=== PATIENT | female | born 1955 | race African-American/Black ===

== ENCOUNTER 2019-04-12 08:41 | Day surgery (SDC) | payer MEDICARE, BC ==
[~2019-04-12] VITALS: Ht 170.2 cm; Wt 106.4 kg
[2019-04-12 09:55] LABS: CALC OSMOLALITY 284 mosm/kg (275-300); CARBON DIOXIDE 22.8 mmol/L (21.0-32.0); CHLORIDE - SERUM 104 mmol/L (98-107); CREATININE - SERUM 0.8 mg/dL (0.6-1.3); GLUCOSE 270 mg/dL (74-106); POTASSIUM - SERUM 4.5 mmol/L (3.5-5.1); SODIUM 136 mmol/L (136-145); UREA NITROGEN 20 mg/dL (7-18); eGFR NON AFRICAN AMERICAN 76 mL/min (90-120)
[2019-04-12 09:56] LABS: HEMATOCRIT 42.4 % (36.0-48.0); HEMOGLOBIN 13.9 g/dL (12-16); MCH 28.4 pg (26.0-34.0); MCHC 32.8 g/dL (31.0-37.0); MCV 86.5 fL (80.0-100.0); MEAN PLATELET VOLUME 9.9 fL (7.4-10.4); RBC 4.9 10x6/uL (4.00-5.40); RDW 12.3 % (11.5-14.5)
[2019-04-12] MEDS ORDERED: NORVASC5 MG PO (10:30)
[2019-04-12] MEDS ORDERED: LOPRESSOR25 MG PO (10:31)
[2019-04-12] MEDS ORDERED: HYDROCODON-ACE1 EA10 PO (10:31)
[2019-04-12] MEDS ORDERED: HUMALOG 30100 UNITS/ SC (10:33)
[2019-04-12] MEDS ORDERED: XANAX1 MG PO (10:34)
[2019-04-12 11:14] VITALS: Ht 170.2 cm; Wt 106.4 kg
--- NOTE | 2019-04-12 14:47 | OP ---
PATIENT NAME: MAGAN DAWSON MEDICAL RECORD: [id number] :53 LOCATION:[facility] ADMISSION DATE: SURGEON: CHANDLER RICHARDSON DO DATE OF OPERATION: 04/12/2019 PROCEDURE: EGD with biopsies. INDICATIONS FOR PROCEDURE: Helicobacter pylori-associated gastritis, status post treatment; and gastroparesis. SCOPE: Olympus video gastroscope. MEDICATIONS: Propofol 220 mg IV per anesthesia. ESTIMATED BLOOD LOSS: Minimal. COMPLICATIONS: None. FINDINGS: Informed consent was given. The patient was made comfortable with the above medication. After reaching an adequate level of sedation by slow IV push, the patient was placed on her left side. The endoscope was advanced under direct visualization through the mouth to the second portion of the duodenum with ease. The entire esophagus appeared normal. At the GE junction, there was very mild evidence of LA class A reflux-induced esophagitis. The endoscope was advanced beyond the GE junction into the stomach and retroflexed to view the cardia and fundus, which appeared normal. The body and antrum of the stomach also appeared normal. Random cold forceps biopsies were taken to submit for histopathology and to rule out the presence of H. pylori. The endoscope was advanced beyond the pylorus into the duodenum. There was a single site where there was some granularity, erythema, and possibly some exudate, which appeared consistent with a healing ulcer. The remainder of the duodenum appeared normal down to the second portion. The endoscope was withdrawn from the patient. The patient tolerated the procedure well and there were no complications. IMPRESSIONS: 1. LA class A reflux-induced esophagitis. 2. Duodenitis. PLAN AND RECOMMENDATIONS: 1. Discharge home when recovery parameters are met. 2. Follow up biopsy specimen results. 3. GERD diet and reflux precautions. 4. We will schedule the patient for a repeat gastric emptying scan to determine if she truly does have gastroparesis. There is no endoscopic evidence of that today. 5. Repeat EGD as needed for symptoms. TRANSINT:[id number] Voice Confirmation ID: [id number] DOCUMENT ID: [id number] OPERATIVE REPORT [id number] MAGAN DAWSON CHANDLER RICHARDSON DO at 3074 CC: [id number] DICTATION DATE: 04/12/19 1204 MORTAR CARRIER: 04/12/19 1216 DEP SD 04/12/19 [facility] [address] [place] [address]
== END 2019-04-12 13:02 | disposition home or self-care (01) ==
LOC: D.OPS 08:41
PROVIDERS: Anesthesiology; ATTEND Internal Medicine Gastroenterology
DX: K29.50 Unspecified chronic gastritis without bleeding (principal); K21.0 Gastro-esophageal reflux disease with esophagitis; K29.80 Duodenitis without bleeding; Z01.812 Encounter for preprocedural laboratory examination

== ENCOUNTER 2019-08-11 07:10 | Day surgery (SDC) | payer MEDICARE, BC ==
[~2019-08-11] VITALS: Ht 170.2 cm; Wt 104.5 kg
[~2019-08-11 07:10] MED LIST: HUMALOG 30100 UNITS/ SC; HYDROCODON-ACE1 EA10 PO; LOPRESSOR25 MG PO; NORVASC5 MG PO; XANAX1 MG PO
[2019-08-11 07:51] LABS: CALC OSMOLALITY 286 mosm/kg (275-300); CALCIUM 8.7 mg/dL (8.5-10.1); CARBON DIOXIDE 22.5 mmol/L (21.0-32.0); CHLORIDE - SERUM 106 mmol/L (98-107); CREATININE - SERUM 0.8 mg/dL (0.6-1.3); GLUCOSE 249 mg/dL (74-106); POTASSIUM - SERUM 4.2 mmol/L (3.5-5.1); SODIUM 140 mmol/L (136-145); UREA NITROGEN 13 mg/dL (7-18); eGFR NON AFRICAN AMERICAN 76 mL/min (90-120)
[2019-08-11 07:58] LABS: HEMATOCRIT 38.9 % (36.0-48.0); HEMOGLOBIN 13.5 g/dL (12-16); MCH 29.1 pg (26.0-34.0); MCHC 34.7 g/dL (31.0-37.0); MCV 83.8 fL (80.0-100.0); MEAN PLATELET VOLUME 10.2 fL (7.4-10.4); RBC 4.64 10x6/uL (4.00-5.40); RDW 12.2 % (11.5-14.5); WBC 5.6 10x3/uL (4.8-10.8)
[2019-08-11] MEDS ORDERED: GLUCOTROL 5 MG T5 MG PO (08:08)
[2019-08-11 08:17] VITALS: Ht 170.2 cm; Wt 104.5 kg
--- NOTE | 2019-08-11 10:07 | NUR ---
DC INSTRUCTIONS GIVEN TO PT. STATES UNDERSTANDING. DC'D IV CATH FULLY INTACT.
--- NOTE | 2019-08-11 10:23 | NUR ---
PT LEFT UNIT VIA WC AT 1022
--- NOTE | 2019-08-11 16:30 | OP ---
PATIENT NAME: MAGAN DAWSON MEDICAL RECORD: [id number] :53 LOCATION:[facility] ADMISSION DATE: SURGEON: CHANDLER RICHARDSON DO DATE OF OPERATION: 08/11/2019 PROCEDURE: Colonoscopy with polypectomy. INDICATIONS FOR PROCEDURE: Lower abdominal pain and chronic constipation. Her last colonoscopy was approximately 2 years ago. She also has a personal history of polyps. SCOPE: Olympus video pediatric colonoscope. MEDICATIONS: Propofol 300 mg IV per anesthesia. WITHDRAWAL TIME: 8 minutes. ESTIMATED BLOOD LOSS: Minimal. COMPLICATIONS: None. FINDINGS: Informed consent was given. The patient was made comfortable with the above medication. After reaching an adequate level of sedation by slow IV push, the patient was placed on her left side. A digital rectal examination was performed and it was normal. The endoscope was then advanced under direct visualization through the rectum to the cecum, confirmed by the presence of the appendiceal orifice and ileocecal valve. The endoscope was slowly withdrawn and mucosa was carefully examined. The prep quality was good. There were 4 polyps visualized on today's examination. Three of these were located in the ascending colon. They were all benign appearing and sessile and measured approximately 2-3 mm in diameter. They were all removed using hot forceps. In the descending colon, there was another polyp, which was benign appearing and sessile and measured approximately 2-3 mm in diameter. It was removed using hot forceps. There was evidence of extensive diverticulosis throughout the entire colon. There was no evidence of diverticulitis. Retroflexion was performed in the rectum with a normal appearing rectal wall. The endoscope was withdrawn from the patient. The patient tolerated the procedure well and there were no complications. IMPRESSION: 1. Four polyps as described above, removed using hot forceps. 2. Extensive diverticulosis of the entire colon. PLAN AND RECOMMENDATIONS: 1. Discharge home when recovery parameters are met. 2. Follow up biopsy specimen results. 3. High fiber diet. 4. Continue current medications. 5. Recall colonoscopy in 3-5 years. TRANSINT:[id number] Voice Confirmation ID: [id number] DOCUMENT ID: [id number] OPERATIVE REPORT [id number] MAGAN DAWSON CHANDLER RICHARDSON DO at [id number] CC: [id number] DICTATION DATE: 08/11/19 0945 FIBER WORKER: 08/11/19 1109 [facility] 08/11/19 [facility] [address] [facility] [place], [facility]
== END 2019-08-11 10:22 | disposition home or self-care (01) ==
LOC: D.OPS 07:10
PROVIDERS: Anesthesiology; ATTEND Internal Medicine Gastroenterology
DX: K63.5 Polyp of colon (principal); K57.90 Diverticulosis of intestine, part unspecified, without perforation or abscess without bleeding; Z86.010 Personal history of colon polyps

== ENCOUNTER → 2020-08-08 09:33 | Outpatient (CLI) | payer MEDICARE, BC ==
[2019-08-11 08:17] VITALS: BMI 36.1
[~2020-08-08 09:33] MED LIST changes: +GLUCOTROL 5 MG T5 MG PO
== END | disposition home or self-care (01) ==
LOC: D.RAD 09:33
PROVIDERS: ATTEND Internal Medicine Gastroenterology
DX: R10.84 Generalized abdominal pain (principal); R14.0 Abdominal distension (gaseous)